=== PATIENT | female | born 1955 | race Caucasian/White ===

== ENCOUNTER → 2016-11-28 | Outpatient (CLI) | payer BC ==
[2016-11-28 14:52] LABS: Basophils % (A) 1 %; CH 31.6; CHCM 33.4; Eosinophils # (A) 0.1 k/uL (0-0.7); Eosinophils % (A) 1 %; HCT 42.5 % (34.0-46.0); HDW 2.21; HGB 13.8 gm/dL (11.4-16.0); Luc # (Auto) 0.12; Luc % (Auto) 2; Lymphocytes # (A) 1.9 k/uL (1.0-4.8); Lymphocytes % (A) 30 %; MCHC 32.6 g/dL (31.0-37.0); Mean Platelet Volume 7.4; Monocytes # (A) 0.4 k/uL (0-1.0); Monocytes % (A) 6 %; Neutrophils # (A) 3.8 k/uL (1.3-7.7); Neutrophils % (A) 61 %; RBC 4.47 m/uL (3.80-5.40); RDW 13.9 % (11.5-15.5); WBC 6.3 k/uL (3.8-10.6); WBC (Perox) 5.85
[2016-11-28 15:09] LABS: ALT 34 U/L (9-52); AST 23 U/L (14-36); Alkaline Phosphatase 96 U/L (38-126); Blood Urea Nitrogen 12 mg/dL (7-17); C Reactive Protein <5.0 mg/L (<10.0); Calcium 9.5 mg/dL (8.4-10.2); Carbon Dioxide 25 mmol/L (22-30); Cholesterol 177 mg/dL (<200); Creatine Kinase 77 U/L (30-135); Glucose 91 mg/dL (74-99); HDL Cholesterol 66 mg/dL (40-60); Non-African American GFR(MDRD) >60 (>60 ml/min/1.73 sqM); Potassium 4.1 mmol/L (3.5-5.1); Sodium 140 mmol/L (137-145); Total Bilirubin 0.6 mg/dL (0.2-1.3); Total Protein 7.2 g/dL (6.3-8.2)
[2016-11-28 15:12] LABS: Anion Gap 10 mmol/L; Chloride 105 mmol/L (98-107)
[2016-11-28 16:01] LABS: Erythrocyte Sedimentation Rate 8 mm/hr (0-20)
== END | disposition home or self-care (01) ==
LOC: LABWHC1 14:26
PROVIDERS: ATTEND Internal Medicine
DX: Z00.00 Encounter for general adult medical examination without abnormal findings (principal); E78.5 Hyperlipidemia, unspecified; E03.9 Hypothyroidism, unspecified
CPT/HCPCS: 36415; 80053; 80061; 82550; 84439; 84443; 85025; 85652; 86140

== ENCOUNTER → 2016-12-05 | Outpatient (CLI) | payer BC ==
--- NOTE | 2016-12-05 14:33 | BD ---
EXAMINATION TYPE: MG DEXA axial skeleton. DATE OF EXAM: 12/05/2016 COMPARISON: DEXA bone scan January 18, 2014 CLINICAL HISTORY: Postmenopausal female Height: 5 FT 3 IN Weight: 155 FRAX RISK QUESTIONS: Alcohol (3 or more units per day): NO Family History (Parent hip fracture): NO Glucocorticoids (More than 3mos): NO (Ex: prednisone, prednisolone, methylprednisolone, dexamethasone, and hydrocortisone). History of Fracture in Adulthood: NO Secondary Osteoporosis: 1. Type 1 Diabetes: NO 2. Hyperthyroidism: NO 3. Menopause before 45: NO 4. Malnutrition: NO 5. Chronic liver disease: NO Rheumatoid Arthritis: NO Current Tobacco Use: NO RISK FACTORS HISTORY OF: Active: YES Postmenopausal woman: AGE 48 MEDICATIONS: Additional Medications: ATORVASTATIN,CALCIUM ,VIT D Additional History: EXAM MEASUREMENTS: Bone mineral densitometry was performed using the VisualOn System. Bone mineral density as measured about the Lumbar spine is: ----- L1-L4(G/cm2): 1.139 T Score Values are as follows: ----- L2: -1.6 ----- L3: 0.1 ----- L4: 0.6 ----- L1-L4: -0.3 Bone mineral density has: Increased 1.7% since study of: 2013 Bone mineral density about the R hip (g/cm2): 0.809 Bone mineral density about the L hip (g/cm2): 0.791 T Score values are as follows: -----R Neck: -1.6 -----L Neck: -1.8 -----R Total: -1.1 -----L Total: -1.1 Bone mineral density has: Increased 0.6% since study of: 2013 IMPRESSION: Osteopenia (T Score between -2.5 and -1 as noted by T score values in both hips remains present. Bone density is fairly stable from prior. There is slightly increased risk of fracture and the patient ma y be considered for treatment. Re-Screen 2-5 years. NOTE: T-SCORE=SD OF THE YOUNG ADULT MEAN.
--- NOTE | 2016-12-05 16:52 | WWHP ---
[facility] - HISTORY AND PHYSICAL DATE OF DICTATION: 12/05/2016 CHIEF COMPLAINT: The patient is here for her routine gynecologic exam and mammogram. HISTORY OF PRESENT ILLNESS: This is a 61-year-old G1, P0 with an LMP of 2003. The patient is without gynecologic complaints. PAST MEDICAL HISTORY: 1. Elevated cholesterol. 2. Basal cell skin cancer. 3. History of osteopenia. MEDICATIONS: 1. Lipitor generic 20 mg daily. 2. Aspirin 81 mg daily. 3. Multivitamin 1 daily. 4. Calcium 600 mg with vitamin D 1 daily. 5. Biotin supplement daily. 6. Vitamin B supplement daily. ALLERGIES: NO KNOWN DRUG ALLERGIES. PAST SURGICAL HISTORY: 1. Unilateral salpingo-oophorectomy for an ectopic around age 25. 2. Colonoscopy in 2010. 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 She has been menopausal since 2003. SOCIAL HISTORY: She denies tobacco and drug use and has 1 to 2 alcoholic drinks per month. She previously was but remarried her ex- in 1979. She dukes in [place]. FAMILY HISTORY: Mother had breast cancer and parkinson disease. REVIEW OF SYSTEMS: She has lost about 6 pounds over the last year. She would like to lose more weight with diet and exercise. She denies respiratory, cardiac or GI problems. PHYSICAL EXAM: Blood pressure 116/75, height 5 feet 3 inches, weight 156 pounds, temperature 98.2, pulse 54. This is a well-developed, well-nourished white female who is alert and oriented x3, in no acute distress. HEENT: Within normal limits. NECK: Supple without mass or thyromegaly. CHEST AND LUNGS: Clear to auscultation. HEART: Regular rate and rhythm. Breasts are without mass or discharge. Axillary exam is negative for adenopathy. BACK: Negative for CVA tenderness. ABDOMEN: Soft, nontender, without palpable masses. PELVIC EXAM: External genitalia reveal mild atrophy without lesions. Cervix and vagina reveal mild to moderate atrophy without lesions. The cervix appears nulliparous. There is no evidence of prolapse. The uterus is mid position, nongravid size and nontender. There are no palpable adnexal masses or tenderness. Rectovaginal exam is negative for mass or tenderness and is negative for occult blood. Extremities are nontender. IMPRESSION: 1. [id number]-old menopausal female with normal gynecologic exam. 2. History of osteopenia. PLAN: 1. Pap smear was deferred, since she had a normal one last year. 2. Self breast examination was discussed. 3. Mammogram will be done today. 4. Osteoporosis prevention was discussed and we will repeat bone density testing today. 5. She will return in one year. MMODL / IJN: [id number] /
--- NOTE | 2016-12-07 10:49 | MM ---
Reason for exam: screening (asymptomatic). Last mammogram was performed 10 months ago. History: Patient is postmenopausal, has history of other cancer at age 55, and is nulliparous. Family history of breast cancer in mother at age 85 and breast cancer in cousin. Physical Findings: A clinical breast exam by your physician is recommended on an annual basis and results should be correlated with mammographic findings. MG Screening Mammo w CAD Bilateral CC and MLO view(s) were taken. Prior study comparison: February 02, 2016, bilateral MG screening mammo w CAD. February 01, 2015, bilateral MG screening mammo w CAD. There are scattered fibroglandular densities. No significant changes when compared with prior studies. ASSESSMENT: Negative, BI-RAD 1 RECOMMENDATION: Routine screening mammogram of both breasts in 1 year.
== END ==
LOC: WWCWWP 10:34
PROVIDERS: ATTEND Obstetrics & Gynecology
DX: Z12.31 Encounter for screening mammogram for malignant neoplasm of breast (principal); M85.851 Other specified disorders of bone density and structure, right thigh; M85.852 Other specified disorders of bone density and structure, left thigh; Z78.0 Asymptomatic menopausal state
CPT/HCPCS: 77080; G0202

== ENCOUNTER → 2017-11-15 | Outpatient (CLI) | payer BC ==
[2017-11-15 13:51] LABS: Basophils % (A) 1 %; Eosinophils # (A) 0.1 k/uL (0-0.7); Eosinophils % (A) 1 %; HCT 44.2 % (34.0-46.0); HGB 13.8 gm/dL (11.4-16.0); Lymphocytes % (A) 26 %; MCH 29.1 pg (25.0-35.0); MCHC 31.2 g/dL (31.0-37.0); MCV 93.4 fL (80.0-100.0); Mean Platelet Volume 6.5; Monocytes # (A) 0.4 k/uL (0-1.0); Monocytes % (A) 5 %; Neutrophils # (A) 5.2 k/uL (1.3-7.7); Neutrophils % (A) 66 %; Platelet Count 308 k/uL (150-450); RBC 4.73 m/uL (3.80-5.40); RDW 13.4 % (11.5-15.5); WBC 7.8 k/uL (3.8-10.6)
[2017-11-15 14:06] LABS: Albumin 4.3 g/dL (3.5-5.0); Calcium 9.8 mg/dL (8.4-10.2); Total Bilirubin 0.8 mg/dL (0.2-1.3); Total Protein 7.2 g/dL (6.3-8.2)
== END | disposition home or self-care (01) ==
LOC: LABWHC1 13:26
PROVIDERS: ATTEND Internal Medicine
DX: E78.5 Hyperlipidemia, unspecified (principal); R00.1 Bradycardia, unspecified; E66.3 Overweight
CPT/HCPCS: 36415; 80053; 80061; 82306; 84443; 85025

== ENCOUNTER → 2017-12-24 | Outpatient (CLI) | payer BC ==
[2017-12-24 13:06] VITALS: BP 113/78; PULSE 54; TEMP 98.3; BMI 29.9
--- NOTE | 2017-12-24 13:37 | P.HPOB ---
History of Present Illness H&P Date: 12/24/17 Chief Complaint: The patient is here for her routine gynecologic exam and mammogram. This is a 62-year-old with an LMP of 2003. The patient is without gynecologic complaints. Review of Systems The patient has gained 13 pounds over the last year. She denies respiratory, cardiac, or G.I. problems. Past Medical History Past Medical History: Cancer (Basal cell skin cancer), Hyperlipidemia Additional Past Medical History / Comment(s): History of osteopenia. 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 She had a unilateral salpingo- oophorectomy at age 25 for ectopic . History of Any Multi-Drug Resistant Organisms: None Reported Additional Past Surgical History / Comment(s): Unilateral salpingo-oophorectomy age 25. Colonoscopy 2010. Past Psychological History: No Psychological Hx Reported Smoking Status: Never smoker Past Alcohol Use History: Occasional (2 per month) Past Drug Use History: None Reported Additional History: Patient was previously but really her ex- , together since 1979. She dukes in [place]. - Past Family History Mother Family Medical History: Cancer (Breast) Additional Family Medical History / Comment(s): Parkinson's disease Medications and Allergies Home Medications Medication Instructions Recorded Confirmed Type Aspirin PO DAILY 12/24/17 History Atorvastatin [Lipitor] PO DAILY 12/24/17 History Biotin PO DAILY 12/24/17 History Calcium Carbonate [Calcium] PO DAILY 12/24/17 History Cholecalciferol [Vitamin D3] PO DAILY 12/24/17 History Multivitamin [Multivitamins Adult PO DAILY 12/24/17 History Gummies] Allergies Allergy/AdvReac Type Severity Reaction Status Date / Time No Known Allergies Allergy Unverified 12/24/17 13:04 Exam Vital Signs Temp Pulse BP 12/24/17 13:04 98.3 F 54 L 113/78 Intake and Output 12/23/17 12/24/17 12/24/17 22:59 06:59 14:59 Other: Weight 76.657 kg Height 5'3", BMI 29.9. This is a well-developed well-nourished white female who is alert and oriented times 3 in no acute distress. HEENT: Within normal limits. NECK: Supple without mass or thyromegaly. CHEST AND LUNGS: Clear to auscultation. HEART: Regular rate and rhythm. BREASTS: Are without mass or discharge. AXILLARY EXAM: Negative for adenopathy. BACK: Negative for CVA tenderness. ABDOMEN: Soft, nontender, without palpable masses. PELVIC EXAM: Normal external genitalia with mild atrophy. Cervix and vagina appear normal mild atrophy. There is no unusual discharge. There is no evidence of prolapse. The uterus is midposition, nongravid size and nontender. There are no palpable adnexal masses or tenderness. RECTAL EXAM: rectovaginal exam is negative for mass or tenderness and is negative for occult blood. EXTREMITIES: Nontender. IMPRESSION: 1. 62-year-old menopausal female with normal gynecologic exam. 2. History of osteopenia. PLAN: 1. Pap smear was deferred since she had a normal one less than 2 years ago. 2. Self breast awareness was discussed with the patient. 3. Screening mammogram will be done today. 4. Osteoporosis prevention was discussed. We will plan a repeating bone density testing in 2020. Previous one was done on 12/05/2016. 5. She will return in one year.
--- NOTE | 2017-12-25 11:44 | MM ---
Reason for exam: screening (asymptomatic). Last mammogram was performed 1 year and 1 month ago. History: Patient is postmenopausal, has history of other cancer at age 55, and is nulliparous. Family history of breast cancer in mother at age 85 and breast cancer in cousin. Physical Findings: A clinical breast exam by your physician is recommended on an annual basis and results should be correlated with mammographic findings. MG Screening Mammo w CAD Bilateral CC and MLO view(s) were taken. Prior study comparison: December 05, 2016, bilateral MG screening mammo w CAD. February 02, 2016, bilateral MG screening mammo w CAD. There are scattered fibroglandular densities. No significant changes when compared with prior studies. ASSESSMENT: Negative, BI-RAD 1 RECOMMENDATION: Routine screening mammogram of both breasts in 1 year.
== END | disposition home or self-care (01) ==
LOC: WWCWWP 11:58
PROVIDERS: ATTEND Obstetrics & Gynecology
DX: Z12.31 Encounter for screening mammogram for malignant neoplasm of breast (principal)
CPT/HCPCS: 77067

== ENCOUNTER → 2018-11-18 | Outpatient (CLI) | payer BC ==
[2018-11-18 14:38] LABS: Basophils # (A) 0.1 k/uL (0-0.2); Basophils % (A) 1 %; Eosinophils # (A) 0.1 k/uL (0-0.7); Eosinophils % (A) 2 %; HGB 13.5 gm/dL (11.4-16.0); Lymphocytes # (A) 1.9 k/uL (1.0-4.8); Lymphocytes % (A) 35 %; MCH 30.1 pg (25.0-35.0); MCHC 32.1 g/dL (31.0-37.0); MCV 93.7 fL (80.0-100.0); Mean Platelet Volume 7.4; Monocytes # (A) 0.3 k/uL (0-1.0); Monocytes % (A) 5 %; Neutrophils % (A) 55 %; Platelet Count 283 k/uL (150-450); RBC 4.49 m/uL (3.80-5.40); RDW 13.6 % (11.5-15.5); WBC 5.5 k/uL (3.8-10.6)
[2018-11-18 16:41] LABS: Erythrocyte Sedimentation Rate 13 mm/hr (0-20)
[2018-11-18 21:30] LABS: ALT 28 U/L (8-44); AST 25 U/L (13-35); African American GFR (CKD) 78.9 (60.0-200.0); Albumin/Globulin Ratio 2.26 (1.60-3.17); Alkaline Phosphatase 118 U/L (41-126); BUN/Creat Ratio 14.44 Ratio (12.00-20.00); C Reactive Protein <0.4 mg/dL (0.0-0.8); Calcium 9.2 mg/dL (8.7-10.3); Carbon Dioxide 25.5 mmol/L (21.6-31.8); Chloride 106 mmol/L (96-109); Chol/HDL Ratio 2.81; Cholesterol 160 mg/dL (0-200); Creatine Kinase 77 U/L (26-186); Globulin 1.9 g/dL (1.6-3.3); Glucose 91 mg/dL (70-110); LDL Cholesterol,Calculated 86.4 mg/dL (0.0-131.0); Potassium 4.5 mmol/L (3.5-5.5); Sodium 141 mmol/L (135-145); Total Bilirubin 0.8 mg/dL (0.3-1.2); Total Protein 6.2 g/dL (6.2-8.2)
== END | disposition home or self-care (01) ==
LOC: LABWHC1 12:38
PROVIDERS: ATTEND Internal Medicine
DX: E78.5 Hyperlipidemia, unspecified (principal); E87.8 Other disorders of electrolyte and fluid balance, not elsewhere classified; E55.9 Vitamin D deficiency, unspecified; R00.1 Bradycardia, unspecified
CPT/HCPCS: 36415; 80053; 80061; 82306; 82550; 84443; 85025; 85652; 86140

== ENCOUNTER → 2018-12-30 | Outpatient (CLI) | payer BC ==
[2018-12-30 14:56] VITALS: BP 110/73; PULSE 51; RESP 18; TEMP 97.9; BMI 30.6
--- NOTE | 2018-12-30 15:46 | P.HPOB ---
History of Present Illness H&P Date: 12/30/18 Chief Complaint: The patient is here for her routine gynecologic exam and ma mmogram. This is a 63-year-old with an LMP of 2003. The patient is without gynecologic complaints and denies any postmenopausal bleeding. Review of Systems The patient has gained 4 pounds over the last year. She denies respiratory, cardiac, or G.I. problems. Past Medical History Past Medical History: Cancer, Hyperlipidemia Additional Past Medical History / Comment(s): Basal cell skin cancer. History of osteopenia. 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 History of Any Multi-Drug Resistant Organisms: None Reported Additional Past Surgical History / Comment(s): Unilateral salpingo-oophorectomy age 25 for an ectopic . Colonoscopy 2010(next after 10yrs) Past Psychological History: No Psychological Hx Reported Smoking Status: Never smoker Past Alcohol Use History: Occasional (2-3 per month) Past Drug Use History: None Reported Additional History: The patient has been with her since 1979. They were but she the same man. She [place] in [place]. - Past Family History Mother Family Medical History: Cancer Additional Family Medical History / Comment(s): Breast cancer. Parkinson's disease. Medications and Allergies Home Medications Medication Instructions Recorded Confirmed Type Atorvastatin [Lipitor] 1 tab PO DAILY 12/24/17 12/30/18 History Biotin 1 tab PO DAILY 12/24/17 12/30/18 History Calcium Carbonate [Calcium] 1 tab PO DAILY 12/24/17 12/30/18 History Cholecalciferol [Vitamin D3] 1 tab PO DAILY 12/24/17 12/30/18 History Multivitamin [Multivitamins Adult 1 tab PO DAILY 12/24/17 12/30/18 History Gummies] Dorzolamide/Timolol/Pf [Cosopt Pf 1 dropper RIGHT EYE DAILY 12/30/18 12/30/18 History 2%/5% Ophth Droperette] Latanoprost [Xelpros] 1 drop BOTH EYES DAILY 12/30/18 12/30/18 History Allergies Allergy/AdvReac Type Severity Reaction Status Date / Time No Known Allergies Allergy Unverified 12/30/18 15:01 Exam Vital Signs Temp Pulse Resp BP Pulse Ox 12/30/18 14:43 97.9 F 51 L 18 110/73 96 Intake and Output 12/30/18 12/30/18 12/30/18 06:59 14:59 22:59 Other: Weight 78.471 kg Height 5 feet 3 inches, weight 173 pounds, BMI 30.6. This is a well-developed well-nourished white female who is alert and oriented times 3 in no acute distress. HEENT: Within normal limits. NECK: Supple without mass or thyromegaly. CHEST AND LUNGS: Clear to auscultation. HEART: Regular rate and rhythm. BREASTS: Are without mass or discharge. AXILLARY EXAM: Negative for adenopathy. BACK: Negative for CVA tenderness. ABDOMEN: Soft, nontender, without palpable masses. PELVIC EXAM: Normal external genitalia with mild atrophy. Cervix and vagina appear normal with mild atrophy. The cervix is nulliparous and somewhat stenotic secondary to atrophy. There is no unusual discharge. There is no evidence of prolapse. The uterus is midposition, nongravid size and nontender. There are no palpable adnexal masses or tenderness. RECTAL EXAM: Rectovaginal exam is negative for mass or tenderness and is negative for occult blood. EXTREMITIES: Nontender. IMPRESSION: 1. 63-year-old menopausal female with normal gynecologic exam. 2. History of osteopenia. PLAN: 1. Pap smear was performed. 2. Self breast awareness was discussed with the patient. 3. Screening mammogram will be done today. 4. Osteoporosis prevention was discussed. I have stressed the importance of adequate calcium, vitamin D and regular exercise. Recommended amounts of calcium and vitamin D were also discussed. Her last bone density test was in November 2016. I recommended repeating bone density testing in 2019. 5. She was advised to return in one year for her annual well woman exam.
--- NOTE | 2019-01-01 08:25 | MM ---
Reason for exam: screening (asymptomatic). Last mammogram was performed 1 year ago. History: Patient is postmenopausal, has history of other cancer at age 55, and is nulliparous. Family history of breast cancer in mother at age 85 and breast cancer in cousin. Took hormonal contraceptives for 5 years. Took other hormone for 15 years. Physical Findings: A clinical breast exam by your physician is recommended on an annual basis and results should be correlated with mammographic findings. MG 3D Screening Mammo W/Cad Bilateral CC and MLO view(s) were taken. Prior study comparison: December 24, 2017, bilateral MG screening mammo w CAD. December 05, 2016, bilateral MG screening mammo w CAD. The breast tissue is heterogeneously dense. This may lower the sensitivity of mammography. There is chronic nodularity in the right breast. Focal asymmetry left 6 o'clock anterior position. This finding is changed when compared with previous exams. ASSESSMENT: Incomplete: need additional imaging evaluation, BI-RAD 0 RECOMMENDATION: Special view mammogram of the left breast. If lesion persists on supplemental views, image directed ultrasound is recommended. [facility] will attempt to contact patient to return for supplemental views and ultrasound if indicated.
== END | disposition home or self-care (01) ==
LOC: WWCWWP 14:14
PROVIDERS: ATTEND Obstetrics & Gynecology
DX: Z12.31 Encounter for screening mammogram for malignant neoplasm of breast (principal)
CPT/HCPCS: 77063; 77067

== ENCOUNTER → 2019-01-05 | Outpatient (CLI) | payer BC ==
--- NOTE | 2019-01-05 11:30 | MM ---
Reason for exam: additional evaluation requested from prior study. Last mammogram was performed less than 1 month ago. History: Patient is postmenopausal, has history of other cancer at age 55, and is nulliparous. Family history of breast cancer in mother at age 85 and breast cancer in cousin. Took hormonal contraceptives for 5 years. Took other hormone for 15 years. Physical Findings: Nurse Summary: 0.5cm nodule in the left breast at 2 o'clock (nurse kp). MG 3D Work Up W/Cad LT Spot compression CC, spot compression MLO, and LM view(s) were taken of the left breast. Prior study comparison: December 30, 2018, bilateral MG 3d screening mammo w/cad. December 24, 2017, bilateral MG screening mammo w CAD. There are scattered fibroglandular densities. Nodular asymmetry persist just medial to the retroareolar plane but no correlate is seen on lateral or spot 3D MLO. 6 month follow up recommended. These results were verbally communicated with the patient and result sheet given to the patient on 01/05/19. ASSESSMENT: Probably benign, BI-RAD 3 RECOMMENDATION: Follow-up diagnostic mammogram of the left breast in 6 months.
== END | disposition home or self-care (01) ==
LOC: RADMAMWWP 09:13
PROVIDERS: ATTEND Obstetrics & Gynecology
DX: R92.8 Other abnormal and inconclusive findings on diagnostic imaging of breast (principal)
CPT/HCPCS: 77061; 77065

== ENCOUNTER → 2019-09-22 | Outpatient (CLI) | payer BC ==
--- NOTE | 2019-09-22 16:05 | XR ---
EXAMINATION TYPE: XR wrist complete RT DATE OF EXAM: 09/22/2019 COMPARISON: None HISTORY: Pain, fall TECHNIQUE: Three-view right wrist supplemented with a navicular view FINDINGS: No acute fractures or dislocations are evident. Soft tissues are normal. Alignment is nura l. If there is pain at the anatomic snuff box, nuclear medicine bone scan be recommended for additional evaluation. Follow-up exams can be performed 7-10 days from acute trauma for continued pain. IMPRESSION: 1. Normal 4 view right wrist
--- NOTE | 2019-09-22 16:05 | XR ---
EXAMINATION TYPE: XR hand complete RT DATE OF EXAM: 09/22/2019 COMPARISON: None HISTORY: Fall, pain TECHNIQUE: Three-view right hand FINDINGS: Patient's ring is on during the exam. No acute fractures or dislocations are evident. Joint spaces are preserved. Soft tissues are normal. IMPRESSION: 1. Normal three-view right hand. 2. Follow-up exams can be 7-10 days from acute trauma for continued pain.
== END | disposition home or self-care (01) ==
LOC: RADXRMAIN 14:25
PROVIDERS: ATTEND Internal Medicine
DX: M25.531 Pain in right wrist (principal)

== ENCOUNTER → 2019-10-05 | Outpatient (CLI) | payer BC ==
--- NOTE | 2019-10-05 11:29 | MM ---
Reason for exam: follow-up at short interval from prior study. Last mammogram was performed 9 months ago. History: Patient is postmenopausal, has history of other cancer at age 55, and is nulliparous. Family history of breast cancer in mother at age 85 and breast cancer in cousin. Excisional biopsy. Took hormonal contraceptives for 5 years. Took unspecified hormones beginning at age 35. Physical Findings: Nurse did not find any significant physical abnormalities on exam. MG 3D Diag Mammo W/Cad LT CC and MLO view(s) were taken of the left breast. Prior study comparison: January 05, 2019, left breast MG 3d work up w/cad LT. December 30, 2018, bilateral MG 3d screening mammo w/cad. There are scattered fibroglandular densities. There is no discrete abnormality. No significant new findings when compared with previous films. These results were verbally communicated with the patient and result sheet given to the patient on 10/05/19. ASSESSMENT: Benign, BI-RAD 2 RECOMMENDATION: Return to routine screening mammogram schedule for both breasts. Back on schedule for December 2019.
== END | disposition home or self-care (01) ==
LOC: RADMAMWWP 10:50
PROVIDERS: ATTEND Obstetrics & Gynecology
DX: R92.8 Other abnormal and inconclusive findings on diagnostic imaging of breast (principal)
CPT/HCPCS: 77061; 77065

== ENCOUNTER → 2019-11-18 | Outpatient (CLI) | payer BC ==
[2019-11-18 11:11] LABS: Basophils % (A) 1 %; Eosinophils # (A) 0.1 k/uL (0-0.7); Eosinophils % (A) 2 %; HGB 13.2 gm/dL (11.4-16.0); Lymphocytes # (A) 1.8 k/uL (1.0-4.8); Lymphocytes % (A) 28 %; MCH 30.4 pg (25.0-35.0); MCHC 31.4 g/dL (31.0-37.0); MCV 96.8 fL (80.0-100.0); Mean Platelet Volume 7.4; Monocytes # (A) 0.3 k/uL (0-1.0); Monocytes % (A) 5 %; Neutrophils # (A) 4.1 k/uL (1.3-7.7); Neutrophils % (A) 64 %; Platelet Count 251 k/uL (150-450); RBC 4.34 m/uL (3.80-5.40); RDW 12.6 % (11.5-15.5); WBC 6.5 k/uL (3.8-10.6)
[2019-11-18 17:31] LABS: ALT 19 U/L (8-44); AST 26 U/L (13-35); African American GFR (CKD) 78.3 (60.0-200.0); Albumin/Globulin Ratio 2.05 (1.60-3.17); Alkaline Phosphatase 97 U/L (41-126); BUN/Creat Ratio 12.22 Ratio (12.00-20.00); C Reactive Protein <0.4 mg/dL (0.0-0.8); Calcium 9.2 mg/dL (8.7-10.3); Carbon Dioxide 27.9 mmol/L (21.6-31.8); Chloride 106 mmol/L (96-109); Cholesterol 148 mg/dL (0-200); Creatine Kinase 102 U/L (26-186); Globulin 2.1 g/dL (1.6-3.3); Glucose 100 mg/dL (70-110); LDL Cholesterol,Calculated 78.4 mg/dL (0.0-131.0); Non-African American GFR(CKD) 67.6 (60.0-200.0); Potassium 4.8 mmol/L (3.5-5.5); Sodium 139 mmol/L (135-145); Total Bilirubin 0.7 mg/dL (0.3-1.2); Total Protein 6.4 g/dL (6.2-8.2)
[2019-11-18 18:42] LABS: Erythrocyte Sedimentation Rate 9 mm/Hr (0-30)
== END | disposition home or self-care (01) ==
LOC: LABWHC1 10:11
PROVIDERS: ATTEND Internal Medicine
DX: Z00.00 Encounter for general adult medical examination without abnormal findings (principal); D64.9 Anemia, unspecified; E78.5 Hyperlipidemia, unspecified; E55.9 Vitamin D deficiency, unspecified; E03.9 Hypothyroidism, unspecified
CPT/HCPCS: 36415; 80053; 80061; 82272; 82306; 82550; 84439; 84443; 85025; 85652; 86140

== ENCOUNTER → 2020-01-19 | Outpatient (CLI) | payer BC ==
[2020-01-19 10:16] VITALS: BP 118/74; PULSE 55; RESP 16; TEMP 97.8
--- NOTE | 2020-01-19 10:48 | P.HPOB ---
History of Present Illness H&P Date: 01/19/20 Chief Complaint: The patient is here for her routine gynecologic exam and ma mmogram. This is a 64-year-old with an LMP of 2003. The patient is without gynecologic complaints. Review of Systems The patient has lost 25 pounds over the last year. The weight loss has been intentional with dietary changes. She would like to lose 10 or 15 pounds more. She denies respiratory, cardiac, or G.I. problems. Past Medical History Past Medical History: Cancer, Hyperlipidemia Additional Past Medical History / Comment(s): Basal cell skin cancer. History of osteopenia. 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 History of Any Multi-Drug Resistant Organisms: None Reported Additional Past Surgical History / Comment(s): Unilateral salpingo-oophorectomy age 25 for an ectopic . Colonoscopy 2010(next after 10yrs) Past Psychological History: No Psychological Hx Reported Smoking Status: Never smoker Past Alcohol Use History: Occasional (1 per month) Past Drug Use History: None Reported Additional History: The patient has been with her since 1979. They were but she remarried the same man. She dukes in [place]. - Past Family History Mother Family Medical History: Cancer Additional Family Medical History / Comment(s): Breast cancer. Parkinson's disease. Medications and Allergies Home Medications Medication Instructions Recorded Confirmed Type Atorvastatin [Lipitor] 1 tab PO HS 12/24/17 01/19/20 History Biotin 1 tab PO HS 12/24/17 01/19/20 History Calcium Carbonate [Calcium] 1 tab PO DAILY 12/24/17 01/19/20 History Cholecalciferol [Vitamin D3] 1 tab PO DAILY 12/24/17 01/19/20 History Multivitamin [Multivitamins Adult 1 tab PO DAILY 12/24/17 01/19/20 History Gummies] Dorzolamide/Timolol/Pf [Cosopt Pf 1 dropper RIGHT EYE DAILY 12/30/18 01/19/20 History 2%/5% Ophth Droperette] Latanoprost [Xelpros] 1 drop BOTH EYES HS 12/30/18 01/19/20 History Allergies Allergy/AdvReac Type Severity Reaction Status Date / Time No Known Allergies Allergy Unverified 01/19/20 10:10 Exam Vital Signs Temp Pulse Resp BP Pulse Ox 01/19/20 10:12 97.8 F 55 L 16 118/74 98 Intake and Output 01/18/20 01/19/20 01/19/20 22:59 06:59 14:59 Other: Weight 67.132 kg Height 5 feet 3 inches, weight 148 pounds, BMI 26.2. This is a well-developed well-nourished white female who is alert and oriented times 3 in no acute distress. HEENT: Within normal limits. NECK: Supple without mass or thyromegaly. CHEST AND LUNGS: Clear to auscultation. HEART: Regular rate and rhythm. BREASTS: Are without mass or discharge. AXILLARY EXAM: Negative for adenopathy. BACK: Negative for CVA tenderness. ABDOMEN: Soft, nontender, without palpable masses. PELVIC EXAM: Normal external genitalia with mild atrophy. Cervix and vagina appear normal with mild atrophy. There is no unusual discharge. There is no evidence of prolapse. The uterus is midposition, nongravid size and nontender. There are no palpable adnexal masses or tenderness. RECTAL EXAM: Rectovaginal exam is negative for mass or tenderness and is negative for occult blood. EXTREMITIES: Nontender. IMPRESSION: 1. 64-year-old menopausal female with normal gynecologic exam. 2. History of osteopenia. PLAN: 1. Pap smear was deferred since she had a normal one on 12/30/2018. 2. Self breast awareness was discussed with the patient. 3. Screening mammogram will be done today. 4. Osteoporosis prevention was discussed. I have stressed the importance of adequate calcium, vitamin D and regular exercise. Recommended amounts of calcium and vitamin D were also discussed. I have recommended that she have a bone density test done in the upcoming year. The order slip was given to the patient for this. She will be leaving for [place] soon and will probably do this after she returns from [place] in the spring. 5. She was advised to return in one year for her annual well woman exam.
--- NOTE | 2020-01-20 11:19 | MM ---
Reason for exam: screening (asymptomatic). Last mammogram was performed 3 months ago. History: Patient is postmenopausal, has history of other cancer at age 55, and is nulliparous. Family history of breast cancer in mother at age 85 and breast cancer in cousin. Excisional biopsy. Took hormonal contraceptives for 5 years. Took unspecified hormones beginning at age 35. Physical Findings: A clinical breast exam by your physician is recommended on an annual basis and results should be correlated with mammographic findings. MG 3D Screening Mammo W/Cad Bilateral CC and MLO view(s) were taken. Prior study comparison: October 05, 2019, left breast MG 3d diag mammo w/cad LT. January 05, 2019, left breast MG 3d work up w/cad LT. The breast tissue is heterogeneously dense. This may lower the sensitivity of mammography. There is chronic nodularity in the left breast, stable. No significant changes when compared with prior studies. ASSESSMENT: Benign, BI-RAD 2 RECOMMENDATION: Routine screening mammogram of both breasts in 1 year.
== END | disposition home or self-care (01) ==
LOC: WWCWWP 09:57
PROVIDERS: ATTEND Obstetrics & Gynecology
DX: Z12.31 Encounter for screening mammogram for malignant neoplasm of breast (principal)
CPT/HCPCS: 77063; 77067

== ENCOUNTER → 2020-12-06 | Outpatient (CLI) | payer MEDICARE ==
[2020-12-06 12:52] VITALS: BP 106/72; PULSE 52; RESP 12; TEMP 97.8
--- NOTE | 2020-12-06 13:51 | P.HPOB ---
History of Present Illness H&P Date: 12/06/20 Chief Complaint: The patient is here for her routine gynecologic exam. This is a 65-year-old with an LMP of 2003. The patient is without gynecologic complaints. Review of Systems She has gained about 4 pounds over the past year. She denies respiratory, cardiac and G.I. problems. She denies maltreatment or problems with falling. : she denies any significant problems with urinary leakage. Past Medical History Past Medical History: Cancer, Hyperlipidemia Additional Past Medical History / Comment(s): Basal cell skin cancer. History of osteopenia. 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 History of Any Multi-Drug Resistant Organisms: None Reported Additional Past Surgical History / Comment(s): Unilateral salpingo-oophorectomy age 25 for an ectopic . Colonoscopy 2010(next after 10yrs) Past Psychological History: No Psychological Hx Reported Smoking Status: Never smoker Past Alcohol Use History: Occasional (1 per month) Past Drug Use History: None Reported Additional History: The patient has been with her since 1979. They were but she remarried the same man. They are sexually active. She dukes in [place]. - Past Family History Mother Family Medical History: Cancer Additional Family Medical History / Comment(s): Breast cancer. Parkinson's disease. Medications and Allergies Home Medications Medication Instructions Recorded Confirmed Type Atorvastatin [Lipitor] 1 tab PO HS 12/24/17 12/06/20 History Biotin [Biotin Disolve] 1 tab PO HS 12/24/17 12/06/20 History Calcium Carbonate [Calcium] 1 tab PO DAILY 12/24/17 12/06/20 History Cholecalciferol [Vitamin D3] 1 tab PO DAILY 12/24/17 12/06/20 History Multivitamin [Multivitamins Adult 1 tab PO DAILY 12/24/17 12/06/20 History Gummies] Dorzolamide/Timolol/Pf [Cosopt Pf 1 dropper RIGHT EYE DAILY 12/30/18 12/06/20 History 2%/5% Ophth Droperette] Brimonidine Tartrate/Timolol 1 drop RIGHT EYE BID 12/06/20 12/06/20 History [Combigan 0.2%-0.5% Eye Drops] Latanoprostene Bunod [Vyzulta] 1 drop RIGHT EYE DAILY 12/06/20 12/06/20 History Allergies Allergy/AdvReac Type Severity Reaction Status Date / Time No Known Allergies Allergy Unverified 12/06/20 12:37 Exam Vital Signs Temp Pulse Resp BP Pulse Ox 12/06/20 12:39 97.8 F 52 L 12 106/72 97 Intake and Output 12/05/20 12/06/20 12/06/20 22:59 06:59 14:59 Other: Weight 69.4 kg Height 5 feet 3 inches, weight 152 pounds, BMI 27.1. This is a well-developed well-nourished white female who is alert and oriented times 3 in no acute distress. HEENT: Within normal limits. NECK: Supple without mass or thyromegaly. CHEST AND LUNGS: Clear to auscultation. HEART: Regular rate and rhythm. BREASTS: Are without mass or discharge. AXILLARY EXAM: Negative for adenopathy. BACK: Negative for CVA tenderness. ABDOMEN: Soft, nontender, without palpable masses. PELVIC EXAM: Normal external genitalia with mild to moderate atrophy. Cervix and vagina appear normal with mild atrophy. There is no unusual discharge. There is no evidence of prolapse. The uterus is midposition, nongravid size and nontender. There are no palpable adnexal masses or tenderness. RECTAL EXAM: Rectovaginal exam is negative for mass or tenderness and is negative for occult blood. EXTREMITIES: Nontender. IMPRESSION: 1. 65-year-old menopausal female with normal gynecologic exam. 2. History of osteopenia 3. She is status post unilateral salpingo-oophorectomy for benign reasons in the past. PLAN: 1. Pap smear was deferred since she had one less than 2 years ago which was normal. We will plan on repeating Pap smear at her next well woman visit. If that one is normal, we will consider discontinuing Pap smears altogether. 2. Self breast awareness was discussed with the patient. We have also discussed symptoms associated with inflammatory breast cancer. 3. Screening mammogram is scheduled for 12/08/2020. The order slip was given to the patient for this. 4. Osteoporosis prevention was discussed. I have stressed the importance of adequate calcium, vitamin D and regular exercise. Recommended amounts of calcium and vitamin D were also discussed. I have recommended repeating bone density testing since her last one was in 2017. The order slip was given to the patient for this. 5. I have recommended that she look into repeating her colonoscopy since it has been 10 years since her last one. She is concerned about going in for a colonoscopy since she does not want do this during Covid pandemic. She will speak with her PCP regarding colorectal cancer screening and the different options. 6. She has completed her Covid vaccination series and plans to get the flu shot through her PCP. 7. She was advised to return in one year for her annual well woman exam.
== END ==
LOC: WWCWWP 12:30
PROVIDERS: ATTEND Obstetrics & Gynecology
DX: Z01.419 Encounter for gynecological examination (general) (routine) without abnormal findings (principal); E78.5 Hyperlipidemia, unspecified; Z87.39 Personal history of other diseases of the musculoskeletal system and connective tissue; Z90.721 Acquired absence of ovaries, unilateral; Z90.79 Acquired absence of other genital organ(s)

== ENCOUNTER → 2020-12-08 | Outpatient (CLI) | payer MEDICARE | END | disposition home or self-care (01) | LOC: RADMAMWWP 16:07 | PROVIDERS: ATTEND Obstetrics & Gynecology | DX: Z53.9 Procedure and treatment not carried out, unspecified reason (principal) ==

== ENCOUNTER → 2020-12-14 | Outpatient (CLI) | payer MEDICARE ==
--- NOTE | 2020-12-14 15:55 | BD ---
EXAMINATION TYPE: Axial Bone Density DATE OF EXAM: 12/14/2020 COMPARISON: NONE CLINICAL HISTORY: Height: 5 FT 3 IN Weight: 150 FRAX RISK QUESTIONS: Alcohol (3 or more units per day): NO Family History (Parent hip fracture): NO Glucocorticoids (More than 3mos): NO (Ex: prednisone, prednisolone, methylprednisolone, dexamethasone, and hydrocortisone). History of Fracture in Adulthood: NO Secondary Osteoporosis: 1. Type 1 Diabetes: NO 2. Hyperthyroidism: NO 3. Menopause before 45: APPROX 45 4. Malnutrition: NO 5. Chronic liver disease: NO Rheumatoid Arthritis: NO Current Tobacco Use: NO RISK FACTORS HISTORY OF: Surgery to Spine/Hip(right/left)/Wrist (right/left): NO Family History of Osteoporosis: NO Active: YES Diet low in dairy products/other sources of calcium: NO Postmenopausal woman: APPROX AGE 45 Take estrogen and/or progesterone medications: NO Lost more than 2 inches in height since high school: NO MEDICATIONS: Additional Medications: ATORVASTATAN, EYE DROPS FOR GLAUCOMA Additional History: INFERTILITY MEDS EIGHT TIMES EXAM MEASUREMENTS: Bone mineral densitometry was performed using the [employer] System. Bone mineral density as measured about the Lumbar spine is: ----- L1-L4(G/cm2): 1.169 T Score Values are as follows: ----- L2: -0.7 ----- L3: -0.5 ----- L4: 1.0 ----- L1-L4: -0.1 Bone mineral density has: INCREASED 2.2 % since study of: 2017 Bone mineral density about the R hip (g/cm2): 0.798 Bone mineral density about the L hip (g/cm2): 0.753 T Score values are as follows: -----R Neck: -1.7 -----L Neck: -2.0 -----R Total: -1.1 -----L Total: -1.3 Bone mineral density has: DECREASED -1.6 % since study of: 2017 IMPRESSION: Osteopenia NOTE: T-SCORE=SD OF THE YOUNG ADULT MEAN.
== END | disposition home or self-care (01) ==
LOC: RADBDWWP 13:24
PROVIDERS: ATTEND Obstetrics & Gynecology
DX: M85.89 Other specified disorders of bone density and structure, multiple sites (principal); Z78.0 Asymptomatic menopausal state
CPT/HCPCS: 77080

== ENCOUNTER → 2021-12-12 | Outpatient (CLI) | payer MEDICARE ==
[2021-12-12 19:52] LABS: Basophils # (A) 0.09 X 10*3/uL (0.00-0.10); Basophils % (A) 1.4 %; Eosinophils # (A) 0.15 X 10*3/uL (0.04-0.35); Eosinophils % (A) 2.3 %; HCT 41.2 % (37.2-46.3); HGB 13.4 g/dL (12.0-15.0); Immature Grans, Automated 0.5 %; Lymphocytes # (A) 2.02 X 10*3/uL (0.90-5.00); Lymphocytes % (A) 31.3 %; MCH 31.5 pg (27.0-32.0); MCHC 32.5 g/dL (32.0-37.0); MCV 96.7 fL (80.0-97.0); Mean Platelet Volume 10.2 fL (9.5-12.2); Monocytes # (A) 0.45 X 10*3/uL (0.20-1.00); NRBC Per 100 WBC 0 /100 WBCS (0.0-0.0); Neutrophils # (A) 3.71 X 10*3/uL (1.80-7.70); Neutrophils % (A) 57.5 %; Platelet Count 253 X 10*3/uL (140-440); RBC 4.26 X 10*6/uL (4.10-5.20); RDW 12.8 % (11.5-14.5); WBC 6.45 X 10*3/uL (4.50-10.00)
[2021-12-12 20:15] LABS: ALT 21 U/L (8-44); AST 25 U/L (13-35); African American GFR (CKD) 77.2 (60.0-200.0); Albumin 4.4 g/dL (3.8-4.9); Albumin/Globulin Ratio 1.76 (1.60-3.17); Alkaline Phosphatase 110 U/L (41-126); BUN/Creat Ratio 19.89 Ratio (12.00-20.00); Blood Urea Nitrogen 17.9 mg/dL (9.0-27.0); C Reactive Protein <0.30 mg/dL (0.00-0.80); Calcium 9.1 mg/dL (8.7-10.3); Carbon Dioxide 22.4 mmol/L (20.0-27.5); Chloride 106 mmol/L (96-109); Chol/HDL Ratio 2.97 Ratio; Creatine Kinase 57 U/L (26-186); Globulin 2.5 g/dL (1.6-3.3); Glucose 95 mg/dL (70-110); LDL Cholesterol,Calculated 104.9 mg/dL (0.0-131.0); Non-African American GFR(CKD) 66.6 (60.0-200.0); Potassium 4.2 mmol/L (3.5-5.5); Sodium 140 mmol/L (135-145); Total Protein 6.9 g/dL (6.2-8.2); VLDL Calculation 11.88 mg/dL (5.00-40.00)
[2021-12-12 20:24] LABS: Erythrocyte Sedimentation Rate 2 mm/Hr (0-30)
== END | disposition home or self-care (01) ==
LOC: LABWHC1 11:25
PROVIDERS: ATTEND Internal Medicine
DX: Z00.00 Encounter for general adult medical examination without abnormal findings (principal); D64.9 Anemia, unspecified; E78.5 Hyperlipidemia, unspecified; E03.9 Hypothyroidism, unspecified; E55.9 Vitamin D deficiency, unspecified
CPT/HCPCS: 36415; 80053; 80061; 82306; 82550; 84439; 84443; 85025; 85652; 86140

== ENCOUNTER → 2021-12-12 | Outpatient (CLI) | payer MEDICARE ==
[2021-12-12 12:47] VITALS: BP 122/78; PULSE 50; RESP 17; TEMP 98.8
--- NOTE | 2021-12-12 13:38 | P.HPOB ---
History of Present Illness H&P Date: 12/12/21 Chief Complaint: The patient is here for her routine gynecologic exam and ma mmogram. This is a 66-year-old with an LMP of 2003. The patient is without gynecologic complaints and denies any postmenopausal bleeding. Review of Systems The patient's weight has been stable over the last year. She denies respiratory, cardiac, or G.I. problems. Past Medical History Past Medical History: Cancer, Hyperlipidemia Additional Past Medical History / Comment(s): Basal cell skin cancer. Glaucoma. History of osteopenia. 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 History of Any Multi-Drug Resistant Organisms: None Reported Additional Past Surgical History / Comment(s): Unilateral salpingo-oophorectomy age 25 for an ectopic . Colonoscopy 2021(next after 5yrs). Eye surgery for glaucoma. Past Psychological History: No Psychological Hx Reported Smoking Status: Never smoker Past Alcohol Use History: Rare (2 per Year) Past Drug Use History: None Reported Additional History: The patient has been with her since 1979. They were but she remarried the same man. She will [employer] in [place]. - Past Family History Mother Family Medical History: Cancer Additional Family Medical History / Comment(s): Breast cancer. Parkinson's disease. Medications and Allergies Home Medications Medication Instructions Recorded Confirmed Type Atorvastatin [Lipitor] 1 tab PO HS 12/24/17 12/12/21 History Biotin [Biotin Disolve] 1 tab PO HS 12/24/17 12/12/21 History Calcium Carbonate [Calcium] 1 tab PO DAILY 12/24/17 12/12/21 History Cholecalciferol [Vitamin D3] 1 tab PO DAILY 12/24/17 12/12/21 History Multivitamin [Multivitamins Adult 1 tab PO DAILY 12/24/17 12/12/21 History Gummies] Dorzolamide/Timolol/Pf [Cosopt Pf 1 dropper RIGHT EYE DAILY 12/30/18 12/12/21 History 2%/5% Ophth Droperette] Brimonidine Tartrate/Timolol 1 drop RIGHT EYE BID 12/06/20 12/12/21 History [Combigan 0.2%-0.5% Eye Drops] Latanoprostene Bunod [Vyzulta] 1 drop RIGHT EYE DAILY 12/06/20 12/12/21 History Allergies Allergy/AdvReac Type Severity Reaction Status Date / Time No Known Allergies Allergy Unverified 12/12/21 12:43 Exam Vital Signs Temp Pulse Resp BP Pulse Ox 12/12/21 12:43 98.8 F 50 L 17 122/78 100 Intake and Output 12/11/21 12/12/21 12/12/21 22:59 06:59 14:59 Other: Weight 68.039 kg Height 5 feet 3 inches, weight 150 pounds, BMI 26.6. This is a well-developed well-nourished white female who is alert and oriented times 3 in no acute distress. HEENT: Within normal limits. NECK: Supple without mass or thyromegaly. CHEST AND LUNGS: Clear to auscultation. HEART: Regular rate and rhythm. BREASTS: Are without mass or discharge. AXILLARY EXAM: Negative for adenopathy. BACK: Negative for CVA tenderness. ABDOMEN: Soft, nontender, without palpable masses. PELVIC EXAM: Normal external genitalia with mild to moderate atrophy. Cervix and vagina appear normal with mild to moderate atrophy. The cervix appears nulliparous and is somewhat stenotic secondary to atrophy. There is no unusual discharge. There is no evidence of prolapse. The uterus is midposition, nongravid size and nontender. There are no palpable adnexal masses or tenderness. RECTAL EXAM: Rectovaginal exam is negative for mass or tenderness and is negative for occult blood. EXTREMITIES: Nontender. IMPRESSION: 1. 66-year-old menopausal female with normal gynecologic exam. 2. History of previous unilateral oophorectomy and salpingectomy for ectopic many years ago. 3. History of osteopenia. PLAN: 1. Pap smear was performed. If this is negative we will plan on discontinuing Pap smears. 2. Self breast awareness was discussed with the patient. We have also discussed symptoms associated with inflammatory breast cancer. 3. Screening mammogram will be done today. 4. Osteoporosis prevention was discussed. I have stressed the importance of adequate calcium, vitamin D and regular exercise. Recommended amounts of calcium and vitamin D were also discussed. We will plan on repeating bone density testing in 1-2 years. 5. She has completed her Covid vaccination series and did receive a booster. She is planning on getting her second booster in the near future. 6. The patient was advised to return in 1-2 years for her well woman examination.
== END ==
LOC: WWCWWP 11:57
PROVIDERS: ATTEND Obstetrics & Gynecology
DX: Z12.31 Encounter for screening mammogram for malignant neoplasm of breast (principal); Z01.419 Encounter for gynecological examination (general) (routine) without abnormal findings; E78.5 Hyperlipidemia, unspecified; Z78.0 Asymptomatic menopausal state; Z90.721 Acquired absence of ovaries, unilateral; Z40.03 Encounter for prophylactic removal of fallopian tube(s); Z87.39 Personal history of other diseases of the musculoskeletal system and connective tissue
CPT/HCPCS: 77063; 77067

== ENCOUNTER → 2021-12-22 | Outpatient (CLI) | payer MEDICARE ==
--- NOTE | 2021-12-22 14:03 | MM ---
Reason for Exam: Additional evaluation requested from abnormal screening. Last screening mammogram was performed less than 1 month ago. Patient History: Menarche at age 13. Patient has no children. Left ovary removed at age 35. Postmenopausal. Other cancer, age 55. Patient used Hormonal Contraceptives for 5 years. Unspecified Hormone, from age 35 until age 41. Excisional Biopsy. Maternal cousin had breast cancer. Mother had breast cancer, age 85. Risk Values: Torrie 5 year model risk: 3.9%. NCI Lifetime model risk: 13.5%. Tissue Density: Right: The breast tissue is heterogeneously dense. This may lower the sensitivity of mammography. Findings: Analyzed By CAD. Under compression a suspicious distortion is not clearly identified. Some mild linear residual remains. Short-term follow-up is recommended. A suspicious architectural distortion in the medial lateral view is not evident. Overall Assessment: Probably benign, BI-RAD 3 Management: Diagnostic Mammogram of the right breast in 6 months. A clinical breast exam by your physician is recommended on an annual basis and results should be correlated with mammographic findings. This exam should not preclude additional follow-up of suspicious palpable abnormalities. Results were given to the patient verbally at the time of exam. Electronically signed and approved by: Valentino Zarco D.O. Radiologis
== END | disposition home or self-care (01) ==
LOC: RADMAMWWP 13:23
PROVIDERS: ATTEND Obstetrics & Gynecology
DX: R92.8 Other abnormal and inconclusive findings on diagnostic imaging of breast (principal); Z80.3 Family history of malignant neoplasm of breast; Z78.0 Asymptomatic menopausal state
CPT/HCPCS: 77065; G0279; 77061

== ENCOUNTER → 2022-09-12 | Outpatient (CLI) | payer MEDICARE ==
--- NOTE | 2022-09-12 14:03 | MM ---
Reason for Exam: Follow-up at short interval from prior study. Last screening mammogram was performed 9 month(s) ago. Patient History: Menarche at age 13. Patient has no children. Left ovary removed at age 35. Postmenopausal. Other cancer, age 55. Patient used Hormonal Contraceptives for 5 years. Unspecified Hormone, from age 35 until age 41. Excisional Biopsy. Maternal cousin had breast cancer. Mother had breast cancer, age 85. Risk Values: Torrie 5 year model risk: 3.9%. NCI Lifetime model risk: 13.0%. Prior Study Comparison: 01/19/2020 Bilateral Screening Mammogram, [facility]. 12/12/2021 Bilateral MG 3D screening mammo w/cad, [facility]. 12/22/2021 Right MG 3D work up w/cad RT, [facility]. Tissue Density: Right: There are scattered fibroglandular densities. Findings: Analyzed By CAD. Stable fibroglandular tissue within the right breast. No new suspicious masses, calcifications or distortions. Overall Assessment: Benign, BI-RAD 2 Management: Screening Mammogram of both breasts in 1 year. Results were given to the patient verbally at the time of exam. Patient should continue monthly self-breast exams. A clinical breast exam by your physician is recommended on an annual basis. This exam should not preclude additional follow-up of suspicious palpable abnormalities. Note on Torrie scores and lifetime risk: 1. A Torrie score greater than 3% is considered moderate risk. If this is the case, consider specialist referral to assess eligibility for a risk reducing agent. 2. If overall lifetime risk for the development of breast cancer is 20% or higher, the patient may qualify for future screening with alternating mammogram and breast MRI. Electronically signed and approved by: Alex Parr DO
== END | disposition home or self-care (01) ==
LOC: RADMAMWWP 12:28
PROVIDERS: ATTEND Obstetrics & Gynecology
DX: R92.8 Other abnormal and inconclusive findings on diagnostic imaging of breast (principal); Z80.3 Family history of malignant neoplasm of breast; Z78.0 Asymptomatic menopausal state
CPT/HCPCS: 77065; G0279; 77061

== ENCOUNTER → 2022-12-04 | Outpatient (CLI) | payer MEDICARE ==
[2022-12-04 20:45] LABS: Basophils # (A) 0.05 X 10*3/uL (0.00-0.10); Basophils % (A) 0.6 %; Eosinophils # (A) 0.34 X 10*3/uL (0.04-0.35); Eosinophils % (A) 4.3 %; HCT 43.9 % (37.2-46.3); HGB 14.3 d/dL (12.0-15.0); Lymphocytes # (A) 2.49 X 10*3/uL (0.90-5.00); Lymphocytes % (A) 31.1 %; MCH 31.1 pg (27.0-32.0); MCHC 32.6 d/dL (32.0-37.0); MCV 95.4 FL (80.0-97.0); Mean Platelet Volume 10.2 FL (9.5-12.2); Monocytes # (A) 0.52 X 10*3/uL (0.20-1.00); Monocytes % (A) 6.5 %; NRBC Per 100 WBC 0 X 10*3/uL (0.00-0.01); Neutrophils # (A) 4.58 X 10*3/uL (1.80-7.70); Neutrophils % (A) 57.2 %; Platelet Count 257 X 10*3/uL (140-440); RDW 12.4 % (11.5-14.5)
[2022-12-04 20:54] LABS: % Iron Saturation 33.87 (12.00-45.00); ALT 24 U/L (8-44); AST 20 U/L (13-35); Albumin 4.7 d/dL (3.8-4.9); Albumin/Globulin Ratio 2.24 Ratio (1.60-3.17); Alkaline Phosphatase 101 U/L (41-126); BUN/Creat Ratio 17.56 Ratio (12.00-20.00); Blood Urea Nitrogen 15.8 mg/dL (9.0-27.0); C Reactive Protein <0.30 mg/dL (0.00-0.80); Calcium 9.8 mg/dL (8.7-10.3); Carbon Dioxide 27.3 mmol/L (21.6-31.8); Chloride 103 mmol/L (96-109); Chol/HDL Ratio 3.02 Ratio; Creatine Kinase 60 U/L (26-186); Globulin 2.1 d/dL (1.6-3.3); Glucose 99 mg/dL (70-110); Iron 126 UG/DL (50-170); LDL Cholesterol,Calculated 103.1 mg/dL (0.0-131.0); Magnesium 2.2 mg/dL (1.5-2.4); Phosphorus 4.5 mg/dL (2.4-5.1); Potassium 4.6 mmol/L (3.5-5.5); Sodium 140 mmol/L (135-145); Total Bilirubin 0.5 mg/dL (0.3-1.2); Total Iron Binding Capacity 372 UG/DL (228-460); Total Protein 6.8 d/dL (6.2-8.2); Uric Acid 4.6 mg/dL (2.9-7.7); VLDL Calculation 17.96 mg/dL (5.00-40.00)
== END | disposition home or self-care (01) ==
LOC: LABWHC1 12:37
PROVIDERS: ATTEND Internal Medicine
DX: Z00.00 Encounter for general adult medical examination without abnormal findings (principal); H40.9 Unspecified glaucoma; D64.9 Anemia, unspecified; E87.8 Other disorders of electrolyte and fluid balance, not elsewhere classified; M10.9 Gout, unspecified; E78.5 Hyperlipidemia, unspecified; E03.9 Hypothyroidism, unspecified; M81.0 Age-related osteoporosis without current pathological fracture; R00.1 Bradycardia, unspecified; Z78.0 Asymptomatic menopausal state
CPT/HCPCS: 36415; 80053; 80061; 82550; 82728; 83540; 83550; 83735; 84100; 84443; 84550; 85025; 86140

== ENCOUNTER → 2022-12-19 | Outpatient (CLI) | payer MEDICARE ==
[2022-12-19 11:45] VITALS: BP 94/58; PULSE 55; RESP 16; TEMP 98.3
--- NOTE | 2022-12-19 12:33 | P.HPOB ---
History of Present Illness H&P Date: 12/19/22 Chief Complaint: The patient is here for her routine gynecologic exam. This is a 67-year-old with an LMP of 2003. The patient is without gynecologic complaints and denies any postmenopausal bleeding. Review of Systems She is gained about 6 pounds over the past year. Respiratory: She is getting over a cold. She denies cardiac or GI problems. Past Medical History Past Medical History: Cancer, Hyperlipidemia Additional Past Medical History / Comment(s): Basal cell skin cancer. Glaucoma. History of osteopenia. 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 History of Any Multi-Drug Resistant Organisms: None Reported Additional Past Surgical History / Comment(s): Unilateral salpingo-oophorectomy age 25 for an ectopic . Colonoscopy 2021(next after 5yrs). Eye surgery for glaucoma. Past Psychological History: No Psychological Hx Reported Smoking Status: Never smoker Past Alcohol Use History: Rare (2 drinks per year.) Past Drug Use History: None Reported Additional History: The patient has been with her since 1987. They were but she remarried the same man. She spends much of the winter in [place]. - Past Family History Mother Family Medical History: Cancer Additional Family Medical History / Comment(s): Breast cancer. Parkinson's disease. Medications and Allergies Home Medications Medication Instructions Recorded Confirmed Type Atorvastatin [Lipitor] 1 tab PO HS 12/24/17 12/19/22 History Biotin [Biotin Disolve] 1 tab PO HS 12/24/17 12/19/22 History Calcium Carbonate [Calcium] 1 tab PO DAILY 12/24/17 12/19/22 History Cholecalciferol [Vitamin D3] 1 tab PO DAILY 12/24/17 12/19/22 History Multivitamin [Multivitamins Adult 1 tab PO DAILY 12/24/17 12/19/22 History Gummies] Dorzolamide/Timolol/Pf [Cosopt Pf 1 dropper RIGHT EYE DAILY 12/30/18 12/19/22 History 2%/5% Ophth Droperette] Brimonidine Tartrate/Timolol 1 drop RIGHT EYE BID 12/06/20 12/19/22 History [Combigan 0.2%-0.5% Eye Drops] Netarsudil Mesylat/Latanoprost 1 drop BOTH EYES DAILY 12/19/22 12/19/22 History [Rocklatan 0.02%-0.005% Eye Drp] Ubidecarenone [Co Q-10] 100 mg PO DAILY 12/19/22 12/19/22 History Allergies Allergy/AdvReac Type Severity Reaction Status Date / Time No Known Allergies Allergy Unverified 12/19/22 11:29 Exam Vital Signs Temp Pulse Resp BP Pulse Ox 12/19/22 11:29 98.3 F 55 L 16 94/58 96 Intake and Output 12/18/22 12/19/22 12/19/22 22:59 06:59 14:59 Other: Weight 70.76 kg Height 5 feet 3 inches, weight 156 pounds, BMI 27.6. This is a well-developed well-nourished white female who is alert and oriented times 3 in no acute distress. Skin: There is a small area of a maculopapular rash in the area of the lower sternum and near the right breast which she states she she got after exposure to poison darlene recently. HEENT: Within normal limits. NECK: Supple without mass or thyromegaly. CHEST AND LUNGS: Clear to auscultation. HEART: Regular rate and rhythm. BREASTS: Are without mass or discharge. AXILLARY EXAM: Negative for adenopathy. BACK: Negative for CVA tenderness. ABDOMEN: Soft, nontender, without palpable masses. PELVIC EXAM: Normal external genitalia with mild atrophy. Cervix and vagina appear normal mild atrophy. There is no unusual discharge. There is no evidence of prolapse. The uterus is midposition, nongravid size and nontender. There are no palpable adnexal masses or tenderness. RECTAL EXAM: Rectovaginal exam is negative for mass or tenderness and is negative for occult blood. EXTREMITIES: Nontender. IMPRESSION: 1. 67-year-old menopausal female status post unilateral salpingo-oophorectomy for benign reasons with normal gynecologic exam. 2. History of osteopenia. PLAN: 1. Pap smears have been discontinued. 2. Self breast awareness was discussed with the patient. We have also discussed symptoms associated with inflammatory breast cancer. 3. Bilateral Screening mammogram will be due and the order slip was given to the patient for this. 4. Osteoporosis prevention was discussed. I have stressed the importance of adequate calcium, vitamin D and regular exercise. Recommended amounts of calcium and vitamin D were also discussed. I have recommended repeating the bone density test and the order slip was given to the patient for this. She states she will plan on having this done after she returns from [place] after the winter. 5. She was advised to return in one year for her annual well woman exam.
== END ==
LOC: WWCWWP 11:24
PROVIDERS: ATTEND Obstetrics & Gynecology
DX: Z12.31 Encounter for screening mammogram for malignant neoplasm of breast (principal); E78.5 Hyperlipidemia, unspecified; M85.80 Other specified disorders of bone density and structure, unspecified site; Z80.3 Family history of malignant neoplasm of breast; Z85.828 Personal history of other malignant neoplasm of skin; Z90.721 Acquired absence of ovaries, unilateral; Z78.0 Asymptomatic menopausal state

== ENCOUNTER → 2023-01-15 | Outpatient (CLI) | payer MEDICARE ==
--- NOTE | 2023-01-16 09:08 | MM ---
Reason for Exam: Screening (asymptomatic). Last mammogram was performed 1 year(s) and 1 month(s) ago. Patient History: Menarche at age 13. Patient has no children. Left ovary removed at age 35. Postmenopausal. Other cancer, age 55. Patient used Hormonal Contraceptives for 5 years. Unspecified Hormone, from age 35 until age 41. Excisional Biopsy. Maternal cousin had breast cancer. Mother had breast cancer, age 85. Risk Values: Torrie 5 year model risk: 3.9%. NCI Lifetime model risk: 13.0%. Prior Study Comparison: 12/12/2021 Bilateral MG 3D screening mammo w/cad, [facility]. 12/22/2021 Right MG 3D work up w/cad RT, [facility]. 09/12/2022 Right MG 3D diag mammo w/cad RT, [facility]. Tissue Density: The breast tissue is heterogeneously dense. This may lower the sensitivity of mammography. Findings: Analyzed By CAD. There is no suspicious group of microcalcifications or new suspicious mass. Overall Assessment: Negative, BI-RAD 1 Management: Screening Mammogram of both breasts in [address] [facility] will attempt to contact patient to return for supplemental views and ultrasound if indicated. Patient should continue monthly self-breast exams. A clinical breast exam by your physician is recommended on an annual basis. This exam should not preclude additional follow-up of suspicious palpable abnormalities. Note on Torrie scores and lifetime risk: 1. A Torrie score greater than 3% is considered moderate risk. If this is the case, consider specialist referral to assess eligibility for a risk reducing agent. 2. If overall lifetime risk for the development of breast cancer is 20% or higher, the patient may qualify for future screening with alternating mammogram and breast MRI. Electronically signed and approved by: Alex Parr DO
== END | disposition home or self-care (01) ==
LOC: RADMAMWWP 16:05
PROVIDERS: ATTEND Obstetrics & Gynecology
DX: Z12.31 Encounter for screening mammogram for malignant neoplasm of breast (principal); Z78.0 Asymptomatic menopausal state; Z80.3 Family history of malignant neoplasm of breast
CPT/HCPCS: 77063; 77067

== ENCOUNTER → 2023-12-31 | Outpatient (CLI) | payer MEDICARE ==
[2023-12-31 15:11] LABS: Basophils # (A) 0.04 X 10*3/uL (0.00-0.10); Basophils % (A) 0.7 %; Eosinophils # (A) 0.17 X 10*3/uL (0.04-0.35); HCT 42.4 % (37.2-46.3); HGB 13.7 g/dL (12.0-15.0); Lymphocytes # (A) 1.77 X 10*3/uL (0.90-5.00); Lymphocytes % (A) 31.3 %; MCH 30.6 pg (27.0-32.0); MCHC 32.3 g/dL (32.0-37.0); MCV 94.9 FL (80.0-97.0); Mean Platelet Volume 10.3 FL (9.5-12.2); Monocytes # (A) 0.38 X 10*3/uL (0.20-1.00); Monocytes % (A) 6.7 %; NRBC Per 100 WBC 0 X 10*3/uL (0.00-0.01); Neutrophils # (A) 3.29 X 10*3/uL (1.80-7.70); Neutrophils % (A) 58.1 %; Platelet Count 257 X 10*3/uL (140-440); RBC 4.47 X 10*6/uL (4.10-5.20); RDW 12.5 % (11.5-14.5); WBC 5.66 X 10*3/uL (4.50-10.00)
[2023-12-31 15:58] LABS: % Iron Saturation 33.33 (12.00-45.00); Blood Urea Nitrogen 16.8 mg/dL (9.0-27.0); C Reactive Protein <0.30 mg/dL (0.00-0.80); Chol/HDL Ratio 2.58 Ratio; Creatine Kinase 63 U/L (26-186); Glucose 105 mg/dL (70-110); Iron 117 UG/DL (50-170); LDL Cholesterol,Calculated 79.8 mg/dL (0.0-131.0); Phosphorus 3.9 mg/dL (2.4-5.1); Total Iron Binding Capacity 351 UG/DL (228-460); Uric Acid 4.2 mg/dL (2.9-7.7); VLDL Calculation 15.68 mg/dL (5.00-40.00)
[2023-12-31 15:59] LABS: ALT 18 U/L (8-44); AST 21 U/L (13-35); Albumin 4.4 g/dL (3.8-4.9); Albumin/Globulin Ratio 1.83 Ratio (1.60-3.17); Alkaline Phosphatase 109 U/L (41-126); Calcium 9.4 mg/dL (8.7-10.3); Carbon Dioxide 25.6 mmol/L (21.6-31.8); Chloride 104 mmol/L (96-109); Globulin 2.4 g/dL (1.6-3.3); Potassium 4.4 mmol/L (3.5-5.5); Sodium 141 mmol/L (135-145); Total Bilirubin 0.6 mg/dL (0.3-1.2); Total Protein 6.8 g/dL (6.2-8.2)
[2023-12-31 16:10] LABS: Erythrocyte Sedimentation Rate 6 mm/Hr (0-30)
== END | disposition home or self-care (01) ==
LOC: LABWHC1 09:55
PROVIDERS: ATTEND Internal Medicine
CPT/HCPCS: 36415; 80053; 80061; 82306; 82550; 82728; 83540; 83550; 83735; 84100; 84443; 84550; 85025; 85652; 86140

== ENCOUNTER → 2024-04-14 | Outpatient (CLI) | payer MEDICARE ==
[2024-04-14 08:38] VITALS: BP 101/70; PULSE 73; RESP 16; TEMP 97.2
--- NOTE | 2024-04-14 10:00 | MM ---
Reason for Exam: Screening (asymptomatic). Last mammogram was performed 1 year(s) and 3 month(s) ago. Patient History: Menarche at age 13. Patient has no children. Left ovary removed at age 35. Postmenopausal. Other cancer, age 55. Patient used Hormonal Contraceptives for 5 years. Unspecified Hormone, from age 35 until age 41. Excisional Biopsy. Maternal cousin had breast cancer. Mother had breast cancer, age 85. Risk Values: Torrie 5 year model risk: 4.0%. NCI Lifetime model risk: 12.5%. Prior Study Comparison: 12/22/2021 Right MG 3D work up w/cad RT, [facility]. 09/12/2022 Right MG 3D diag mammo w/cad RT, [facility]. 01/15/2023 Bilateral MG 3D screening mammo w/cad, [facility]. Tissue Density: The breasts are heterogeneously dense, which may obscure small masses. Findings: Analyzed By CAD. Right breast: There is no suspicious group of microcalcifications or new suspicious mass. Left breast: There is no suspicious group of microcalcifications or new suspicious mass. Overall Assessment: Negative, BI-RAD 1 Management: Screening Mammogram of both breasts in [address] [facility] will attempt to contact patient to return for supplemental views and ultrasound if indicated. Patient should continue monthly self-breast exams. A clinical breast exam by your physician is recommended on an annual basis. This exam should not preclude additional follow-up of suspicious palpable abnormalities. Note on Torrie scores and lifetime risk: 1. A Torrie score greater than 3% is considered moderate risk. If this is the case, consider specialist referral to assess eligibility for a risk reducing agent. 2. If overall lifetime risk for the development of breast cancer is 20% or higher, the patient may qualify for future screening with alternating mammogram and breast MRI. [facility], , 04/14/2024 9:26 AM. Electronically signed and approved by: Alex Parr DO
--- NOTE | 2024-04-14 10:29 | BD ---
EXAMINATION TYPE: Axial Bone Density DATE OF EXAM: 04/14/2024 CLINICAL HISTORY: 68 years old Female. ICD-10 CODE: Z780 POST FAUSTINA WITHOUT HRT , Additional History: Height: 5 ft 3 in Weight: 150 FRAX RISK QUESTIONS: Alcohol (3 or more units per day): no Family History (Parent hip fracture): no Glucocorticoids (More than 3mos): eyes (Ex: prednisone, prednisolone, methylprednisolone, dexamethasone, and hydrocortisone). History of Fracture in Adulthood: no Secondary Osteoporosis: 1. Type 1 Diabetes: no 2. Hyperthyroidism: no 3. Menopause before 45: no 4. Malnutrition: no 5. Chronic liver disease: no Rheumatoid Arthritis: no Current Tobacco Use: no RISK FACTORS HISTORY OF: Surgery to Spine/Hip(right/left)/Wrist (right/left): no MEDICATIONS: Thyroid Medications: none Osteoporosis Medications: none EXAM MEASUREMENTS: Bone mineral densitometry was performed using the [employer] System. Bone mineral density as measured about the Lumbar spine is: ----- L1-L4(G/cm2): 1.149 T Score Values are as follows: ----- L1: -1.0 ----- L2: -1.0 ----- L3: -0.4 ----- L4: 0.9 ----- L1-L4: -0.3 Z Score Values are as follows: ----- L1: 0.5 ----- L2: 0.5 ----- L3: 1.1 ----- L4: 2.5 ----- L1-L4: 1.3 Bone mineral density has: decreased -1.7% since study of: 2020 Bone mineral density about the R hip (g/cm2): 0.776 Bone mineral density about the L hip (g/cm2): 0.748 T Score values are as follows: -----R Neck: -1.9 -----L Neck: -2.1 -----R Total: -1.3 -----L Total: -1.5 Z Score values are as follows: -----R Neck: -0.3 -----L Neck: -0.5 -----R Total: 0.0 -----L Total: -0.2 Bone mineral density has: decreased -2.6 % since study of: 2020 FRAX%s: The graph provided illustrates a 19.1 % chance for a major osteoporotic fx and a 4.2 % chance for the hips probability for fx in 10 years time. IMPRESSION: Osteopenia (T Score between -2.5 and -1). There is slightly increased risk of fracture and the patient may be considered for treatment. Re-Screen 2-5 years. NOTE: T-SCORE=SD OF THE YOUNG ADULT MEAN. [facility], , 04/14/2024 10:27 AM
--- NOTE | 2024-04-14 11:12 | P.HPOB ---
History of Present Illness H&P Date: 04/14/24 Chief Complaint: The patient is here for her routine gynecologic exam and ma mmogram. This is a 68-year-old -0-1-0 with an LMP of 2003. The patient is without gynecologic complaints. She has been having issues with her left eye after multiple procedures for glaucoma. Review of Systems The patient has lost 6 pounds over the last year. She denies respiratory, cardiac, or G.I. problems. Past Medical History Past Medical History: Cancer, Hyperlipidemia Additional Past Medical History / Comment(s): Basal cell skin cancer. Glaucoma. History of osteopenia. 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 History of Any Multi-Drug Resistant Organisms: None Reported Additional Past Surgical History / Comment(s): Unilateral salpingo-oophorectomy age 25 for an ectopic . Colonoscopy 2021(next after 5yrs). Eye surgery for glaucoma. Past Psychological History: No Psychological Hx Reported Smoking Status: Never smoker Past Alcohol Use History: Rare (2 drinks per year.) Past Drug Use History: None Reported Additional History: She has been with her since 1987. They were but remarried. She spends most dukes in [place], but did not go because of high problems this year. - Past Family History Mother Family Medical History: Cancer Additional Family Medical History / Comment(s): Breast cancer. Parkinson's disease. Medications and Allergies Home Medications Medication Instructions Recorded Confirmed Type Atorvastatin [Lipitor] 1 tab PO HS 12/24/17 04/14/24 History Biotin [Biotin Disolve] 1 tab PO HS 12/24/17 04/14/24 History Calcium Carbonate [Calcium] 1 tab PO DAILY 12/24/17 04/14/24 History Cholecalciferol [Vitamin D3] 1 tab PO DAILY 12/24/17 04/14/24 History Multivitamin [Multivitamins Adult 1 tab PO DAILY 12/24/17 04/14/24 History Gummies] Dorzolamide/Timolol/Pf [Cosopt Pf 1 dropper RIGHT EYE DAILY 12/30/18 04/14/24 History 2%/5% Ophth Droperette] Brimonidine Tartrate/Timolol 1 drop RIGHT EYE BID 12/06/20 04/14/24 History [Combigan 0.2%-0.5% Eye Drops] Netarsudil Mesylat/Latanoprost 1 drop BOTH EYES DAILY 12/19/22 04/14/24 History [Rocklatan 0.02%-0.005% Eye Drp] Ubidecarenone [Co Q-10] 100 mg PO DAILY 12/19/22 04/14/24 History Amikacin Liposomal/Neb.accessr 1 drop BOTH EYES DIRECTED 04/14/24 04/14/24 History [Arikayce 590 mg/8.4 ml Vial] Moxifloxacin HCl [Moxifloxacin 1 drop BOTH EYES DIRECTED 04/14/24 04/14/24 History 0.5%] Allergies Allergy/AdvReac Type Severity Reaction Status Date / Time No Known Allergies Allergy Unverified 04/14/24 08:27 Exam Vital Signs Temp Pulse Resp BP Pulse Ox 04/14/24 08:36 97.2 F L 73 16 101/70 96 Intake and Output 04/13/24 04/14/24 04/14/24 22:59 06:59 14:59 Other: Weight 68.039 kg Height 5 feet 3 inches, weight 150 pounds, BMI 26.6. This is a well-developed well-nourished white female who is alert and oriented times 3 in no acute distress. HEENT: Within normal limits. NECK: Supple without mass or thyromegaly. CHEST AND LUNGS: Clear to auscultation. HEART: Regular rate and rhythm. BREASTS: Are without mass or discharge. AXILLARY EXAM: Negative for adenopathy. BACK: Negative for CVA tenderness. ABDOMEN: Soft, nontender, without palpable masses. PELVIC EXAM: Normal external genitalia with mild atrophy. Cervix and vagina appear normal with mild atrophy. There is no unusual discharge. There is no evidence of prolapse. The uterus is midposition, nongravid size and nontender. There are no palpable adnexal masses or tenderness. RECTAL EXAM: Rectovaginal exam is negative for mass or tenderness and is negative for occult blood. EXTREMITIES: Nontender. IMPRESSION: 1. 68-year-old menopausal female status post unilateral salpingo-oophorectomy for benign reasons, with normal gynecologic exam. 2. History of osteopenia. PLAN: 1. Pap smears have been discontinued. 2. Self breast awareness was discussed with the patient. We have also discussed symptoms associated with inflammatory breast cancer. 3. Screening mammogram was done today. 4. Osteoporosis prevention was discussed. I have stressed the importance of adequate calcium, vitamin D and regular exercise. Recommended amounts of calcium and vitamin D were also discussed. Density test will be done today. 5. She was advised to return in one year for her annual well woman exam.
--- NOTE | 2024-04-14 18:18 | P.PN ---
Progress Note - Text Progress Note Date: 04/14/24 OUTPATIENT FOLLOW-UP NOTE TEST(S)/RESULTS: Test results from 04/14/2024 include benign mammogram and bone density test showing osteopenia METHOD OF NOTIFICATION: The patient was notified by phone on 04/14/2024. PATIENT COMMENTS: DIAGNOSIS: Benign mammogram and osteopenia. DISCUSSION: There were mild decreases in both the lumbar spine and hip measurements. I have stressed the importance of getting adequate calcium, vitamin D, and regular exercise. We will plan on repeating the bone density t est in approximately 2 to 3 years. PLAN: As above.
== END ==
LOC: WWCWWP 08:08
PROVIDERS: ATTEND Obstetrics & Gynecology
DX: N95.9 Unspecified menopausal and perimenopausal disorder (principal); Z90.721 Acquired absence of ovaries, unilateral; Z12.31 Encounter for screening mammogram for malignant neoplasm of breast; Z87.39 Personal history of other diseases of the musculoskeletal system and connective tissue
CPT/HCPCS: 77063; 77067; 77080

== ENCOUNTER → 2024-09-12 | Outpatient (CLI) | payer MEDICARE ==
[2024-09-13 02:28] LABS: ALT 21 U/L (8-44); AST 22 U/L (13-35); Albumin 4.4 g/dL (3.8-4.9); Albumin/Globulin Ratio 1.83 Ratio (1.60-3.17); Alkaline Phosphatase 118 U/L (41-126); Blood Urea Nitrogen 16.1 mg/dL (9.0-27.0); Calcium 9.4 mg/dL (8.7-10.3); Carbon Dioxide 26.3 mmol/L (21.6-31.8); Chloride 107 mmol/L (96-109); Chol/HDL Ratio 3.04 Ratio; Globulin 2.4 g/dL (1.6-3.3); Glucose 108 mg/dL (70-110); LDL Cholesterol,Calculated 92.7 mg/dL (0.0-131.0); Magnesium 2.1 mg/dL (1.5-2.4); Phosphorus 4.5 mg/dL (2.4-5.1); Sodium 143 mmol/L (135-145); Total Bilirubin 0.5 mg/dL (0.3-1.2); Total Protein 6.8 g/dL (6.2-8.2)
[2024-09-13 02:59] LABS: % Iron Saturation 24.18 (12.00-45.00); C Reactive Protein <0.30 mg/dL (0.00-0.80); Creatine Kinase 65 U/L (26-186); Iron 81 UG/DL (50-170); Total Iron Binding Capacity 335 UG/DL (228-460)
[2024-09-13 06:03] LABS: Basophils # (A) 0.06 X 10*3/uL (0.00-0.10); Eosinophils # (A) 0.15 X 10*3/uL (0.04-0.35); Eosinophils % (A) 2.4 %; HCT 42.3 % (37.2-46.3); HGB 13.6 g/dL (12.0-15.0); Lymphocytes # (A) 2.17 X 10*3/uL (0.90-5.00); Lymphocytes % (A) 35.3 %; MCH 31.3 pg (27.0-32.0); MCHC 32.2 g/dL (32.0-37.0); MCV 97.2 FL (80.0-97.0); Mean Platelet Volume 10.8 FL (9.5-12.2); Monocytes # (A) 0.41 X 10*3/uL (0.20-1.00); Monocytes % (A) 6.7 %; NRBC Per 100 WBC 0 X 10*3/uL (0.00-0.01); Neutrophils # (A) 3.33 X 10*3/uL (1.80-7.70); Neutrophils % (A) 54.3 %; Platelet Count 211 X 10*3/uL (140-440); RBC 4.35 X 10*6/uL (4.10-5.20); RDW 12.1 % (11.5-14.5); WBC 6.14 X 10*3/uL (4.50-10.00)
[2024-09-13 06:24] LABS: Erythrocyte Sedimentation Rate 13 mm/Hr (0-30)
== END | disposition home or self-care (01) ==
LOC: LABWHC1 11:06
PROVIDERS: ATTEND Internal Medicine
DX: D64.9 Anemia, unspecified (principal); E78.5 Hyperlipidemia, unspecified; E87.8 Other disorders of electrolyte and fluid balance, not elsewhere classified; M10.9 Gout, unspecified; E03.9 Hypothyroidism, unspecified; E55.9 Vitamin D deficiency, unspecified
CPT/HCPCS: 36415; 80053; 80061; 82306; 82550; 82728; 83540; 83550; 83735; 84100; 84443; 84550; 85025; 85652; 86140